=== PATIENT | male | born 1990 | race African-American/Black ===

== ENCOUNTER 2016-10-29 16:01 | Emergency (ER) | payer SELFPAY ==
[~2016-10-29 16:01] MED LIST: LISINOPRIL 10 MG TAB PO SCH
[2016-10-29 16:11] VITALS: RESP 16; O2SAT 98
--- NOTE | 2016-10-29 16:20 | EDPHY ---
H & P Time Seen by Provider: 10/29/16 16:12 HPI/ROS: CHIEF COMPLAINT: Elevated Blood Pressure, History of Chest Pain, Paresthesias HISTORY OF PRESENT ILLNESS: This is a 26 year old male with HTN presenting to the Emergency Department today with elevated blood pressure. He previously took Lisinopril and Amlodipine to treat his hypertension, but discontinued these medications 6 days ago because of cost. Since being off his medication, he reports increasing chest pains, headache, and dizziness. 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 His symptoms are the same as he usually experiences when his hypertension is untreated. He reports he has recently lost 80lbs and has "never felt healthier". He denies fever, cough, abdominal pain, or other associated symptoms. REVIEW OF SYSTEMS: Constitutional: No fever, no chills Eyes: No visual changes ENT: No sore throat Respiratory: No cough, no shortness of breath Cardiac: +chest pain Gastrointestinal: + nausea, no vomiting, no abdominal pain Genitourinary: No hematuria, no dysuria Musculoskeletal: No leg pain or swelling Skin: No rash Neurological: +headache, +paresthesias, +dizziness, no numbness, no weakness Psychiatric: No depression Past Medical/Surgical History: Hypertension, PTSD Social History: Works in [place]. Recently lost Medicaid. Smoking Status: Current some day smoker Physical Exam: General Appearance: Alert, no distress Eyes: Pupils equal and round, no conjunctival pallor or injection ENT, Mouth: Mucous membranes moist Neck: Normal inspection Respiratory: Lungs are clear to auscultation Cardiovascular: Regular rate and rhythm Gastrointestinal: Abdomen is soft and non- tender Neurological: A&O, nonfocal, normal gait Skin: Warm and dry, no rash Extremities: Nontender, no pedal edema Psychiatric: Mood and affect normal Constitutional: Initial Vital Signs Temperature (C) 36.3 C 10/29/16 16:08 Heart Rate 78 10/29/16 16:08 Respiratory Rate 16 10/29/16 16:08 Blood Pressure 146/113 H 10/29/16 16:08 O2 Sat (%) 98 10/29/16 16:08 O2 Delivery Mode Room Air Allergies/Adverse Reactions: guaifenesin [From Mucinex] Allergy (Verified 10/29/16 16:06) Home Medications: Medication Instructions Recorded Lisinopril 30 mg PO DAILY #7 tablet 10/29/16 amLODIPine BESYLATE [Norvasc 10 mg 10 mg PO DAILY #7 tab 10/29/16 (*)] Medical Decision Making - Diagnostics EKG Interpretation: EKG interpreted by me reveals normal sinus rhythm, rate 62, no ST/T changes. Interpretation: normal EKG. ED Course/Re-evaluation: This 26 year old male presents today with elevated blood pressure. He complains of chest pain, headache, dizziness, nausea, and paresthesias. He reports these symptoms are the same as during previous episodes of hypertension. His physical exam is normal. BP 139/105. Will proceed with EKG, if normal plan to give Amlodipine and Lisinopril to treat his symptoms. Ordered 10mg PO Amlodipine and 30mg PO Lisinopril He has been referred to [facility] for continuation of care and to re- establish his medications. He will be discharged home with a week's supply of Amlodipine and Lisinopril. Return precautions discussed. The patient is comfortable with this plan. Differential Diagnosis: Differential diagnosis includes though not limited to acute coronary syndrome, acute renal failure, intracranial hemorrhage. - Data Points Medications Given: Discontinued Medications Amlodipine Besylate (Norvasc) 10 mg PO EDNOW ONE Stop: 10/29/16 16:31 Last Admin: 10/29/16 17:18 Dose: 10 mg Lisinopril (Zestril) 30 mg PO EDNOW ONE Stop: 10/29/16 16:31 Last Admin: 10/29/16 16:44 Dose: 30 mg Departure - Departure Disposition: Home, Routine, Self-Care Clinical Impression: Hypertension Qualifiers: Hypertension type: essential hypertension Qualified Code(s): I10 - Essential ( primary) hypertension Condition: Good Instructions: Hypertension (ED) Additional Instructions: 1. Call to schedule a follow-up appointment with [facility] as soon as possible. 2. Take your blood pressure medications as prescribed. 3. Return to the ED for chest pain or headache not improved by your medications or other worsening of condition. Referrals: BLAS ROWE NP [Other] - As per Instructions [facility],. [Clinic] - As per Instructions Stand Alone Forms: Work Excuse Prescriptions: amLODIPine BESYLATE [Norvasc 10 mg (*)] 10 mg PO DAILY #7 tab Lisinopril 30 mg PO DAILY #7 tablet Report Scribed for: Nancy Huynh Report Scribed by: Nurys Kovacs Date of Report: 10/29/16 Time of Report: 16:20 Physician Review and Approval Statement: 10/29/16 16:19 Portions of this note were transcribed by a medical transcription editor. I personally performed a history, physical exam, medical decision making, and confirmed accuracy of information the transcribed note.
--- NOTE | 2016-10-29 16:22 | CPEKG ---
Heart Rate: 62 RR Interval: 968 P-R Interval: 160 QRSD Interval: 82 QT Interval: 400 QTC Interval: 407 P [place]: 13 QRS [place]: 44 T Wave [place]: 43 EKG Severity - NORMAL ECG - EKG Impression: SINUS RHYTHM Electronically Signed By: Nancy Huynh 29-Oct-2016 17:57:23
[2016-10-29] MEDS ORDERED: LISINOPRIL 20 MG TAB PO ONE (16:30)
[2016-10-29 17:49] VITALS: BP 167/99; PULSE 67; TEMP 98.2
== END 2016-10-29 17:51 | disposition home or self-care (01) ==
DX: I10 Essential (primary) hypertension (principal); F17.200 Nicotine dependence, unspecified, uncomplicated